=== PATIENT | female | born 1955 | race Caucasian/White ===

== ENCOUNTER 2017-06-22 23:56 | Emergency (ER) | payer MEDICARE, MEDICAID ==
[~2017-06-22] VITALS: Ht 160 cm; Wt 83.9 kg
[~2017-06-22 23:56] MED LIST: ACETAMINOPHEN-H1 TA2 PO; ALLEGRA ALLERG180 MG OR; ALPRAZOLAM0.5 M3 PO; AMITRIPTYLINE H75 MG PO; ASPIRIN 81MG TA81 MG PO; ATORVASTATIN CA20 M1 PO; BENADRYL 50MG C50 MG PO; CALCIUM-MAGNES1 EAC3 PO; CIPRO 500MG TA500 MG PO; CLOPIDOGREL75 M2 PO; COLACE GENERIC100 MG PO; CYCLOBENZAPRINE10 M1 OR; FUROSEMIDE 20MG20 MG FT; GLIPIZIDE10 MG PO; HYDROCODONE1 TABLET PO; KEFLEX 500MG.500 MG PO; LETROZOLE2.5 MG PO; LEVAQUIN500 MG PO; LISINOPRIL20 MG PO; LYRICA 100 MG100 MG PO; NITROGLYCERIN0.4 MG SL; PERCOCET1 TAB PO; PHENERGAN12.5 M3 PO; PROBIOTIC1 EAC5 PO; RANITIDINE 150150 MG PO; TYLENOL325 MG PO; VITAMIN C500 M1 PO; VITAMIN E 400400 IU PO; VITAMIN K0.1 MG PO; ZETIA10 MG PO
--- NOTE | 2017-06-23 00:07 | Emergency Room Report ---
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 HAS GAS AND NO BM X 2 DAYS. 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 N Clinical Suspician of Infection? N Mental Status: 1 - Regular (Normal Baseline) Sepsis Risk:Possible Sepsis Risk Have you (or family members/close friends) recently traveled outside the [place]? N If Yes, where/when: Have you had exposure to infectious disease within the past month? N TB? Other? Specify: Source patient, RN notes reviewed, EMS, halfway records, old records Exam Limitations no limitations Comment pt with upper abd pain with nausea which started tonight Cardiac Chest Pain Chest pain indicative of cardiac No Timing/Duration this evening Severity moderate ALLERGIES Coded Allergies: trazodone (Intermediate, I-RASH 01/26/17) Beta-Blockers (Beta-Adrenergic Bloc (01/26/17) Macrolides (01/26/17) Proton Pump Inhibitors (01/26/17) Serotonin 5HT-3 Antagonists (01/26/17) bupropion (From WELLBUTRIN) (01/26/17) cimetidine (01/26/17) codeine (01/26/17) doxycycline (06/23/17) erythromycin base (From ERYTHROCIN) (01/26/17) fluoxetine (From PROZAC) (01/26/17) iodine (01/26/17) phenobarbital (01/26/17) pimecrolimus (From ELIDEL) (01/26/17) sirolimus (01/26/17) tacrolimus (01/26/17) topiramate (From TOPAMAX) (01/26/17) tramadol (01/26/17) venlafaxine (From EFFEXOR) (01/26/17) Uncoded Allergies: CONTRAST DYE (07/06/16) KETOLIDES (07/06/16) Home Medications Reported Medications CLOPIDOGREL BISULFATE (Clopidogrel) 75 MG PO DAILY #30 Glipizide 10 MG PO DAILY #30 Letrozole 2.5 MG PO DAILY #30 NITROGLYCERIN (Nitrostat) 0.4 MG SL [id number] PRN CHEST PAIN #25 RANITIDINE HCL (Ranitidine HCl) 300 MG PO BID #60 TAB Lisinopril 20 MG PO DAILY PRN SBP > 130 #15 TAB PROMETHAZINE HCL (Phenergan 12.5MG Tab (Geq)) 12.5 MG PO Q8HP PRN NAUSEA #30 TAB Furosemide (Furosemide) 20 MG FT DAILY PRN FLUID #30 TAB Cyclobenzaprine Hcl 10 MG OR Q8HP PRN PAIN #30 TAB Atorvastatin Calcium 20 MG PO QHS #30 TAB AMITRIPTYLINE HCL (Amitriptyline HCl) 75 MG PO QHS #30 TAB Alprazolam 0.5 MG PO TID PRN ANXIETY #30 TAB Pregabalin (Lyrica 100Mg) 100 MG PO BID #30 CAPSULE Acetaminophen (Tylenol) 325 MG PO Q4HP PRN PAIN/FEVER ASPIRIN (Aspirin) 81 MG PO DAILY Calcium/Magnesium/Zinc (Kupuzjr-Mwwctpbut-Awip Tablet) 2 EACH PO DAILY FEXOFENADINE HCL (Cindy Allergy) 180 MG OR DAILY Bacillus Coagulans (Probiotic) 1 EACH PO DAILY Ascorbic Acid (Vitamin C) 1,000 MG PO DAILY Vitamin E (Vitamin E 400 UNITS) 400 IUNITS PO DAILY Phytonadione (Vitamin K) 0.1 MG PO DAILY Ezetimibe (Zetia) 10 MG PO DAILY OXYCODONE HCL/ACETAMINOPHEN (Percocet 5-325 MG Tablet) 1 TAB PO Q6HP PRN PAIN Diphenhydramine Hcl (Benadryl 50MG Cap) 50 MG PO Q4-6H PRN Pravastatin Sodium (Pravastatin 20MG) 20 MG PO DAILY Docusate Sodium 250 MG PO DAILY History Medical History General CAD? Yes Angina: Yes [place]: Yes Hypertension? Yes Hyperlipidemia? Yes CHF? No DVT? No PE? No COPD? No Asthma? Yes Anemia? No GERD? Yes Gastric ulcers? Yes GI Bleed? No Hernia? Yes Thyroid Problems? No Hypothyroidism? No CVA? Yes Seizures? No Diabetes? Yes Insulin Dependent: No Insulin Pump: No Home FSBS? Yes Renal Insuffiency? No End Stage Renal Disease? No UTI? No Stones? No BPH? No GB Disease: Yes Nephritic Syndrome? No Asplenia? No Hepatitis? No Sickle Cell Disease? No Arthritis? No Migraines? No Cataracts? Yes Glaucoma? No MRSA? No HIV? No TB? No Anxiety? Yes Depression? Yes Cancer? No More? No Immunization Hx DT/Tetanus 1-4 YRS Surgical Hx Previous Surgery?Y GALLBLADDER APPY T&A HYSTERECTOMY EYES X2 HEART STENTS X 3 MASTECTOMY OF RIGHT BREAS Social History Smoking Hx Smoker: Current Every Day Smoker Tobacco: Yes Type Cigarettes Packs/day 1 1/2 - 2 Packs Alcohol Alcohol: No Drugs none Review of Systems All Other Systems Reviewed and Negative Constitutional denies fever Eyes denies drainage ENT denies: ear discharge, epistaxis, throat pain. Respiratory see HPI, cough, denies shortness of breath, denies wheezing Cardiovascular denies chest pain, denies palpitations, denies syncope Gastrointestinal see HPI, abdominal pain, denies diarrhea, nausea, denies vomiting Genitourinary denies: dysuria, frequency, hesitancy, hematuria. Musculoskeletal denies back pain, denies joint pain, denies joint swelling, denies neck pain Skin denies rash Psychiatric/Neurological denies headache, denies seizure Physical Exam Vital Signs Vital Signs Date Time Temp Pulse Resp B/P Pulse O2 O2 Flow FiO2 Ox Delivery Rate 06/23 0058 95 20 112/67 97 06/22 2358 97.6 100 20 135/69 99 - WBC >12,000 or <4,000 or 10% bands? 2 or more SIRS Criteria Met? B/P:112/ MAP:91 Creatinine >2.0? UA output<0.5ml/kg/hr for 2 hrs? Platelet count >100,000? Lactate >2.0mmol/1? INR >1.2 or PTT > than 60 sec? Evidence of Organ Dysfunction? Provider documented clinical suspician of infection? N Sepsis Criteria Count: 2 Sepsis Risk: Possible Sepsis Risk General Appearance no apparent distress Eye Exam - bilateral eye PERRL, bilateral eye EOMI Ear, Nose, Throat normal ENT inspection Neck supple Respiratory Status No: respiratory distress. Lung Sounds bilateral: rhonchi. 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 No Results/Orders Laboratory Tests 06/23/1714: Troponin I < 0.02 06/23/1714: Sodium 136, Potassium 4.2, Chloride 99, Carbon Dioxide 33 H, BUN 16, Creatinine 1.1 H, Estimated Creat Clear 70, Estimated GFR (MDRD) 50 L, Glucose 98, Calcium 9.8, Total Bilirubin 0.3, AST 14 L, ALT 26, Alkaline Phosphatase 132 H , Total Protein 7.6, Albumin 3.9, Globulin 3.7 H, Albumin/Globulin Ratio 1.1, Amylase 17 L, Lipase 104, WBC 12.4 H, RBC 4.57, Hgb 14.8, Hct 44.4, MCV 97.0, RDW 13.2, Plt Count 205, MPV 7.9, Gran % 50.0, Gran # 6.2, Lymphocytes % 39.1, Monocytes % 7.3, Eosinophils % 2.6, Basophils % 1.0, Lymphocytes # 4.9 H, Monocytes # 0.9, Eosinophils # 0.3, Basophils # 0.1, PUBS MCHC 33.3, MCH 32.3 H Current Medication Orders Sig/Vikas Start time Last Medication Dose Route Stop Time Status Admin Sodium Chloride 10 ML PRN PRN 06/23 15 AC IV 06/24 5 Orders Procedure Date/time Status DIET-NOTHING BY MOUTH 06/[address] ABD & PELVIS W/O CONTRAST 06/23 18 Active TROPONIN I 06/[address] ABD REQUEST 06/23 6 Active IV SALINE LOCK 06/23 6 Active URINALYSIS/COMPLETE 06/23 6 Active LIPASE 06/23 6 Complete CBC WITH AUTO DIFF 06/23 6 Complete CHEM 12 PROFILE 06/23 6 Complete AMYLASE 06/23 6 Complete XRAY/CT/US XRAY/CT/US CT abdomen, pelvis CT interpretation by discussed w/radiologist Time results known: 0129 CT Results normal/NAD Departure Departure Time of Disposition 0125 Disposition DC Home or Self Care(routine) Clinical Impression Primary Impression: Gastritis Qualifiers: Gastritis type: unspecified gastritis Chronicity: unspecified Gastritis bleeding: presence of bleeding unspecified Qualified Code: K29.70 - Gastritis, unspecified, without bleeding Condition STABLE Referrals Tash WHYTE,Teto Sheridan (Family) Patient Instructions DI for Vomiting -- Adult Additional Instructions use meds and see pcp for follow up Discharge Counseling Counseled pt/family regarding diagnosis, test results, follow up needs ED Critical Care Critical Care No at 0131
--- NOTE | 2017-06-23 00:07 | Emergency Room Report ---
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 HAS GAS AND NO BM X 2 DAYS. 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 N Clinical Suspician of Infection? N Mental Status: 1 - Regular (Normal Baseline) Sepsis Risk:Possible Sepsis Risk Have you (or family members/close friends) recently traveled outside the [place]? N If Yes, where/when: Have you had exposure to infectious disease within the past month? N TB? Other? Specify: Source patient, RN notes reviewed, EMS, [facility] records, old records Exam Limitations no limitations Comment pt with upper abd pain with nausea which started tonight Cardiac Chest Pain Chest pain indicative of cardiac No Timing/Duration this evening Severity moderate ALLERGIES Coded Allergies: trazodone (Intermediate, I-RASH 01/26/17) Beta-Blockers (Beta-Adrenergic Bloc (01/26/17) Macrolides (01/26/17) Proton Pump Inhibitors (01/26/17) Serotonin 5HT-3 Antagonists (01/26/17) bupropion (From WELLBUTRIN) (01/26/17) cimetidine (01/26/17) codeine (01/26/17) doxycycline (06/23/17) erythromycin base (From ERYTHROCIN) (01/26/17) fluoxetine (From PROZAC) (01/26/17) iodine (01/26/17) phenobarbital (01/26/17) pimecrolimus (From ELIDEL) (01/26/17) sirolimus (01/26/17) tacrolimus (01/26/17) topiramate (From TOPAMAX) (01/26/17) tramadol (01/26/17) venlafaxine (From EFFEXOR) (01/26/17) Uncoded Allergies: CONTRAST DYE (07/06/16) KETOLIDES (07/06/16) Home Medications Reported Medications CLOPIDOGREL BISULFATE (Clopidogrel) 75 MG PO DAILY #30 Glipizide 10 MG PO DAILY #30 Letrozole 2.5 MG PO DAILY #30 NITROGLYCERIN (Nitrostat) 0.4 MG SL [id number] PRN CHEST PAIN #25 RANITIDINE HCL (Ranitidine HCl) 300 MG PO BID #60 TAB Lisinopril 20 MG PO DAILY PRN SBP > 130 #15 TAB PROMETHAZINE HCL (Phenergan 12.5MG Tab (Geq)) 12.5 MG PO Q8HP PRN NAUSEA #30 TAB Furosemide (Furosemide) 20 MG FT DAILY PRN FLUID #30 TAB Cyclobenzaprine Hcl 10 MG OR Q8HP PRN PAIN #30 TAB Atorvastatin Calcium 20 MG PO QHS #30 TAB AMITRIPTYLINE HCL (Amitriptyline HCl) 75 MG PO QHS #30 TAB Alprazolam 0.5 MG PO TID PRN ANXIETY #30 TAB Pregabalin (Lyrica 100Mg) 100 MG PO BID #30 CAPSULE Acetaminophen (Tylenol) 325 MG PO Q4HP PRN PAIN/FEVER ASPIRIN (Aspirin) 81 MG PO DAILY Calcium/Magnesium/Zinc (Hgduwkk-Jadhhfrwy-Cgzy Tablet) 2 EACH PO DAILY FEXOFENADINE HCL (Cindy Allergy) 180 MG OR DAILY Bacillus Coagulans (Probiotic) 1 EACH PO DAILY Ascorbic Acid (Vitamin C) 1,000 MG PO DAILY Vitamin E (Vitamin E 400 UNITS) 400 IUNITS PO DAILY Phytonadione (Vitamin K) 0.1 MG PO DAILY Ezetimibe (Zetia) 10 MG PO DAILY OXYCODONE HCL/ACETAMINOPHEN (Percocet 5-325 MG Tablet) 1 TAB PO Q6HP PRN PAIN Diphenhydramine Hcl (Benadryl 50MG Cap) 50 MG PO Q4-6H PRN Pravastatin Sodium (Pravastatin 20MG) 20 MG PO DAILY Docusate Sodium 250 MG PO DAILY History Medical History General CAD? Yes Angina: Yes [place]: Yes Hypertension? Yes Hyperlipidemia? Yes CHF? No DVT? No PE? No COPD? No Asthma? Yes Anemia? No GERD? Yes Gastric ulcers? Yes GI Bleed? No Hernia? Yes Thyroid Problems? No Hypothyroidism? No CVA? Yes Seizures? No Diabetes? Yes Insulin Dependent: No Insulin Pump: No Home FSBS? Yes Renal Insuffiency? No End Stage Renal Disease? No UTI? No Stones? No BPH? No GB Disease: Yes Nephritic Syndrome? No Asplenia? No Hepatitis? No Sickle Cell Disease? No Arthritis? No Migraines? No Cataracts? Yes Glaucoma? No MRSA? No HIV? No TB? No Anxiety? Yes Depression? Yes Cancer? No More? No Immunization Hx DT/Tetanus 1-4 YRS Surgical Hx Previous Surgery?Y GALLBLADDER APPY T&A HYSTERECTOMY EYES X2 HEART STENTS X 3 MASTECTOMY OF RIGHT BREAS Social History Smoking Hx Smoker: Current Every Day Smoker Tobacco: Yes Type Cigarettes Packs/day 1 1/2 - 2 Packs Alcohol Alcohol: No Drugs none Review of Systems All Other Systems Reviewed and Negative Constitutional denies fever Eyes denies drainage ENT denies: ear discharge, epistaxis, throat pain. Respiratory see HPI, cough, denies shortness of breath, denies wheezing Cardiovascular denies chest pain, denies palpitations, denies syncope Gastrointestinal see HPI, abdominal pain, denies diarrhea, nausea, denies vomiting Genitourinary denies: dysuria, frequency, hesitancy, hematuria. Musculoskeletal denies back pain, denies joint pain, denies joint swelling, denies neck pain Skin denies rash Psychiatric/Neurological denies headache, denies seizure Physical Exam Vital Signs Vital Signs Date Time Temp Pulse Resp B/P Pulse O2 O2 Flow FiO2 Ox Delivery Rate 06/23 0058 95 20 112/67 97 06/22 2358 97.6 100 20 135/69 99 - WBC >12,000 or <4,000 or 10% bands? 2 or more SIRS Criteria Met? B/P:112/ MAP:91 Creatinine >2.0? UA output<0.5ml/kg/hr for 2 hrs? Platelet count >100,000? Lactate >2.0mmol/1? INR >1.2 or PTT > than 60 sec? Evidence of Organ Dysfunction? Provider documented clinical suspician of infection? N Sepsis Criteria Count: 2 Sepsis Risk: Possible Sepsis Risk General Appearance no apparent distress Eye Exam - bilateral eye PERRL, bilateral eye EOMI Ear, Nose, Throat normal ENT inspection Neck supple Respiratory Status No: respiratory distress. Lung Sounds bilateral: rhonchi. 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 No Results/Orders Laboratory Tests 06/23/1714: Troponin I < 0.02 06/23/1714: Sodium 136, Potassium 4.2, Chloride 99, Carbon Dioxide 33 H, BUN 16, Creatinine 1.1 H, Estimated Creat Clear 70, Estimated GFR (MDRD) 50 L, Glucose 98, Calcium 9.8, Total Bilirubin 0.3, AST 14 L, ALT 26, Alkaline Phosphatase 132 H , Total Protein 7.6, Albumin 3.9, Globulin 3.7 H, Albumin/Globulin Ratio 1.1, Amylase 17 L, Lipase 104, WBC 12.4 H, RBC 4.57, Hgb 14.8, Hct 44.4, MCV 97.0, RDW 13.2, Plt Count 205, MPV 7.9, Gran % 50.0, Gran # 6.2, Lymphocytes % 39.1, Monocytes % 7.3, Eosinophils % 2.6, Basophils % 1.0, Lymphocytes # 4.9 H, Monocytes # 0.9, Eosinophils # 0.3, Basophils # 0.1, PUBS MCHC 33.3, MCH 32.3 H Current Medication Orders Sig/Vikas Start time Last Medication Dose Route Stop Time Status Admin Sodium Chloride 10 ML PRN PRN 06/23 15 AC IV 06/24 5 Orders Procedure Date/time Status DIET-NOTHING BY MOUTH 06/[address] ABD & PELVIS W/O CONTRAST 06/23 18 Active TROPONIN I 06/[address] ABD REQUEST 06/23 6 Active IV SALINE LOCK 06/23 6 Active URINALYSIS/COMPLETE 06/23 6 Active LIPASE 06/23 6 Complete CBC WITH AUTO DIFF 06/23 6 Complete CHEM 12 PROFILE 06/23 6 Complete AMYLASE 06/23 6 Complete XRAY/CT/US XRAY/CT/US CT abdomen, pelvis CT interpretation by discussed w/radiologist Time results known: 0129 CT Results normal/NAD Departure Departure Time of Disposition 0125 Disposition DC Home or Self Care(routine) Clinical Impression Primary Impression: Gastritis Qualifiers: Gastritis type: unspecified gastritis Chronicity: unspecified Gastritis bleeding: presence of bleeding unspecified Qualified Code: K29.70 - Gastritis, unspecified, without bleeding Condition STABLE Referrals Tash WHYTE,Teto Sheridan (Family) Patient Instructions DI for Vomiting -- Adult Additional Instructions use meds and see pcp for follow up Discharge Counseling Counseled pt/family regarding diagnosis, test results, follow up needs ED Critical Care Critical Care No at 0131
[2017-06-23] MEDS ORDERED: PRAVASTATIN 20M20 MG PO (00:19)
[2017-06-23 00:21] LABS: HEMOGLOBIN 14.8 g/dL (12.2-16.2); LYMPH # 4.9 K/mm3 (0.7-4.5); LYMPH % 39.1 % (10-50.0)
[2017-06-23] MEDS ORDERED: DOCUSATE SODIU100 MG PO (00:22)
[2017-06-23 01:52] VITALS: BP 107/59
--- NOTE | 2017-06-23 08:47 | RADIOLOGY REPORT PS360 ---
CT ABD PELVIS W/O CONTRAST COMPARISON: CT scan abdomen and pelvis 05/07/2017 HISTORY: Generalized abdominal pain and right upper quadrant pain TECHNIQUE: Multiaxial scans obtained from hemidiaphragms the pelvic floor and were performed without IV or oral contrast. Sagittal and coronal reformats were evaluated as well. FINDINGS: The lower lung [place] are clear. The liver is grossly normal overall size with a somewhat prominent right lobe suggesting a Joseph's lobe variant. There appears be mild generalized fatty infiltration. Stomach is distended with ingested food particles otherwise appears normal. The spleen and pancreas are normal, there has been a previous cholecystectomy. Again noted is a low-density lesion involving left adrenal gland stable and likely a small cyst or adenoma. The right urine glands are normal. The kidneys are normal size and there are no calculi and is no obstructive uropathy. Small bowel appears normal. There does appear to be a small amount of likely inspissated barium contrast within the cecum mixed with stool. There is been previous appendectomy. There is moderate amount stool throughout the colon especially sigmoid colon.. There is been previous hysterectomy. Urinary bladder appears grossly normal. There is no free fluid in the pelvis. IMPRESSION: No definite acute abdominal or pelvic pathology identified. Question mild fatty infiltration of the liver and possibly a mild degree of constipation.
--- OUTSIDE RECORDS SUMMARY | 2017-06-30 18:04 | External Medical Summary Rpt | CCD ---
Author Author , YOLANDE DYER Address Unknown Phone [email or web address] Purpose Continuity of Care Document - 05-07-2017 through 2016 Results Labs Lab Lab Date Result Refere Interp Status Commen Order Detail nces retati t Range on Differential panel, method unspecified - (05-07-2017 21:05) LYMPH 55 % 10% - High complet 017 50% ed 21:05 Platele NORMAL complet ts 017 ed [Presen 21:05 ce] in Blood by Light microsc opy Erythro NORMAL complet cyte 017 ed morphol 21:05 ogy finding [Identi fier] in Blood
--- OUTSIDE RECORDS SUMMARY | 2017-06-30 18:04 | External Medical Summary Rpt | CCD ---
Author Author , YOLANDE DYER Address Unknown Phone [email or web address] Purpose Continuity of Care Document - 05-07-2017 [...]
--- OUTSIDE RECORDS SUMMARY | 2017-06-30 18:05 | External Medical Summary Rpt ---
Author Author MANISHA oJyce, [employer] Organization [employer] Address Unknown Phone Unavailable Results Amylase [Enzymatic activity/volume] in Serum or Plasma Observa Value Referen Units Interpr Notes Date tion ce etation Range Amylase 25 - 115 U/L Low No Jun 5 [Enzymati informati 2017 c on in 12:15 AM activity/ source volume] data in Serum or Plasma Comprehensive metabolic 2000 panel in Serum or Plasma Observa Value Referen Units Interpr Notes Date tion ce etation Range Albumin/G 1.1 - 1.8 No Normal No Oct 5 lobulin informati informati 2017 [Mass on in on in 12:15 AM ratio] in source source Serum or data data Plasma Albumin 3.4 - 5.0 gm/dL Normal No Jun 5 [Mass/vol informati 2017 ume] in on in 12:15 AM Serum or source Plasma data Alkaline 46 - 116 U/L High No Jun 5 phosphata informati 2017 se on in 12:15 AM [Enzymati source c data activity/ volume] in Serum or Plasma Bilirubin 0.2 - 1.0 mg/dL Normal No Oct 5 .total informati 2017 [Mass/vol on in 12:15 AM ume] in source Serum or data Plasma Urea 7 - 18 mg/dL Normal No Oct 5 nitrogen informati 2017 [Mass/vol on in 12:15 AM ume] in source Serum or data Plasma Calcium 8.5 - mg/dL Normal No Jun 5 [Mass/vol 10.1 informati 2017 ume] in on in 12:15 AM Serum or source Plasma data Chloride 98 - 107 mmoL/L Normal No Jun 5 [Moles/vo informati 2017 lume] in on in 12:15 AM Serum or source Plasma data Carbon 21.0 - mmoL/L High No Oct 5 dioxide, 32.0 informati 2017 total on in 12:15 AM [Moles/vo source lume] in data Serum or Plasma Creatinin 0.55 - mg/dL High No Oct 5 e 1.02 informati 2017 [Mass/vol on in 12:15 AM ume] in source Serum or data Plasma Creatinin 50 - 200 ML/MIN Normal No Jun 23 e renal 2016 clearance on in 12:15 AM source predicted data by Cockcroft -Gault formula Estimated 59- ML/MIN Low REFERENCE Jun 23 RANGE: 2017 glomerula >60 12:15 AM r ML/MIN/1. filtratio 73 SQUARE n rate METERSIf (GF this patient is -A merican, then multiply theresult by 1.210. Globulin 1.3 - 3.2 gm/dL High No Jun 23 [Mass/vol informati 2016 ume] in on in 12:15 AM Serum source data Glucose 74 - 106 mg/dL Normal No Jun 23 [Mass/vol informati 2016 ume] in on in 12:15 AM Serum or source Plasma data Potassium 3.5 - 5.1 mmoL/L Normal No Jun [id number] [Moles/vo on in 12:15 AM lume] in source Serum or data Plasma Sodium 136 - 145 mmoL/L Normal No Jun 23 [Moles/vo informati 2016 lume] in on in 12:15 AM Serum or source Plasma data Aspartate 15 - 37 U/L Low No Jun [id number] aminotran on in 12:15 AM sferase source [Enzymati data c activity/ volume] in Serum or Plasma Alanine 12 - 78 U/L Normal No Jun 23 aminotran 2016 sferase on in 12:15 AM [Enzymati source c data activity/ volume] in Serum or Plasma Protein 6.4 - 8.2 gm/dL Normal No Jun 23 [Mass/vol informati 2016 ume] in on in 12:15 AM Serum or source Plasma data Lipase [Enzymatic activity/volume] in Serum or Plasma Observa Value Referen Units Interpr Notes Date tion ce etation Range Lipase 73 - 393 U/L Normal No Jun 23 [Enzymati informati 2017 c on in 12:15 AM activity/ source volume] data in Serum or Plasma CBC W Auto Differential panel in Blood Observa Value Referen Units Interpr Notes Date tion ce etation Range Basophils 0 - 0.2 K/MM3 Normal No Jun 23 inform2016 [#/volume on in 12:15 AM ] in source Blood by data Automated count Basophils 0.1 - 2.0 % Normal No Jun [id number] leukocyte on in 12:15 AM s in source Blood by data Automated count Eosinophi 0.0 - 0.4 K/mm3 Normal No Jun 23 ls inform2016 [#/volume on in 12:15 AM ] in source Blood by data Automated count Eosinophi 0.1 - % Normal No Jun 23 ls/100 12.0 inform2016 leukocyte on in 12:15 AM s in source Blood by data Automated count Granulocy 1.8 - 7.8 K/mm3 Normal No Jun 23 milton inform2016 [#/volume on in 12:15 AM ] in source Blood by data Automated count Granulocy 37.0 - % Normal No Jun 23 milton/100 80.0 inform2016 leukocyte on in 12:15 AM s in source Blood by data Automated count Hematocri 37.0 - % Normal No Jun 23 t [Volume 47.0 2016 on in 12:15 AM Fraction] source of Blood data Hemoglobi 12.2 - g/dL Normal No Jun 23 n 16.2 inform2016 [Mass/vol on in 12:15 AM ume] in source Blood data Lymphocyt 0.7 - 4.5 K/mm3 High No Jun 23 es 2016 [#/volume on in 12:15 AM ] in source Unspecifi data ed specimen by Automated count Lymphocyt 10 - 50.0 % Normal No Jun 23 es 2016 [#/volume on in 12:15 AM ] in source Unspecifi data ed specimen by Automated count Erythrocy 27 - 31.2 pg High No Jun 23 te mean 2016 corpuscul on in 12:15 AM ar source hemoglobi data n [Entitic mass] Erythrocy 31.8 - g/dl Normal No Jun 23 te mean 35.4 2016 corpuscul on in 12:15 AM ar source hemoglobi data n concentra tion [Mass/vol ume] by Automated count Erythrocy 82.2 - fl Normal No Jun 23 te mean 97.8 2016 corpuscul on in 12:15 AM ar volume source [Entitic data volume] by Automated count Monocytes 0.1 - 1.0 K/mm3 Normal No Jun [id number] [#/volume on in 12:15 AM ] in source Blood by data Automated count Monocytes 1.7 - 9.3 % Normal No Jun 232016 leukocyte on in 12:15 AM s in source Blood by data Automated count Platelet 7.4 - fl Normal No Jun 23 mean 10.4 2016 volume on in 12:15 AM [Entitic source volume] data in Blood by Automated count Platelets 142 - 424 K/mm3 Normal No Jun 232016 [#/volume on in 12:15 AM ] in source Blood data Erythrocy 4.2 - 5.4 M/mm3 Normal No Jun 23 inform2016 [#/volume on in 12:15 AM ] in source Amniotic data fluid Erythrocy 11.5 - % Normal No Jun 23 te 17.5 informati 2016 distribut on in 12:15 AM ion width source [Entitic data volume] by Automated count Leukocyte 4.8 - K/MM3 High No Jun 23 s 10.8 inform2016 [#/volume on in 12:15 AM ] in source Blood data CBC W Auto Differential panel in Blood Observa Value Referen Units Interpr Notes Date tion ce etation Range Basophils 0 - 0.2 K/MM3 Normal No May 072016 9:05 [#/volume on in PM ] in source Blood by data Automated count Basophils 0.1 - 2.0 % Normal No May 07 informati 2016 9:05 leukocyte on in PM s in source Blood by data Automated count Eosinophi 0.0 - 0.4 K/mm3 Normal No May 07 ls ati 2016 9:05 [#/volume on in PM ] in source Blood by data Automated count Eosinophi 0.1 - % Normal No May 07 ls/100 12.0 informati 2016 9:05 leukocyte on in PM s in source Blood by data Automated count Granulocy 1.8 - 7.8 K/mm3 Normal No May 07 milton informati 2016 9:05 [#/volume on in PM ] in source Blood by data Automated count Granulocy 37.0 - % Low No May 07 milton/100 80.0 informati 2016 9:05 leukocyte on in PM s in source Blood by data Automated count Hematocri 37.0 - % Normal No May 07 t [Volume 47.0 informati 2016 9:05 on in PM Fraction] source of Blood data Hemoglobi 12.2 - g/dL Normal No May 07 n 16.2 informati 2016 9:05 [Mass/vol on in PM ume] in source Blood data Lymphocyt 0.7 - 4.5 K/mm3 High No May 07 es informati 2017 9:05 [#/volume on in PM ] in source Unspecifi data ed specimen by Automated count Lymphocyt 10 - 50.0 % High No May 07 es informati 2017 9:05 [#/volume on in PM ] in source Unspecifi data ed specimen by Automated count Erythrocy 27 - 31.2 pg High No May 07 te mean informati 2016 9:05 corpuscul on in PM ar source hemoglobi data n [Entitic mass] Erythrocy 31.8 - g/dl Normal No May 07 te mean 35.4 informati 2017 9:05 corpuscul on in PM ar source hemoglobi data n concentra tion [Mass/vol ume] by Automated count Erythrocy 82.2 - fl Normal No May 07 te mean 97.8 informati 2016 9:05 corpuscul on in PM ar volume source [Entitic data volume] by Automated count Monocytes 0.1 - 1.0 K/mm3 Normal No May 07 informati 2017 9:05 [#/volume on in PM ] in source Blood by data Automated count Monocytes 1.7 - 9.3 % Normal No May 07 /100 informati 2017 9:05 leukocyte on in PM s in source Blood by data Automated count Platelet 7.4 - fl Normal No May 07 mean 10.4 informati 2017 9:05 volume on in PM [Entitic source volume] data in Blood by Automated count Platelets 142 - 424 K/mm3 Normal No May 07 informati 2016 9:05 [#/volume on in PM ] in source Blood data Erythrocy 4.2 - 5.4 M/mm3 Normal No May 07 milton informati 2017 9:05 [#/volume on in PM ] in source Amniotic data fluid Erythrocy 11.5 - % Normal No May 07 te 17.5 informati 2016 9:05 distribut on in PM ion width source [Entitic data volume] by Automated count Leukocyte 4.8 - K/MM3 Normal No May 07 s 10.8 informati 2016 9:05 [#/volume on in PM ] in source Blood data Differential panel, method unspecified - Observa Value Referen Units Interpr Notes Date tion ce etation Range Neutrophi 0 - 8 % Normal No May 07 ls.band informati 2016 9:05 form/100 on in PM leukocyte source s in data Blood by Automated count Eosinophi 0 - 3 % Normal No May 07 ls/100 informati 2017 9:05 leukocyte on in PM s in source Blood by data Manual count LYMPH 55 10 - 50 % High No May 07 inform2016 tion in 9:05 PM source data Monocytes 2 - 9 % Low No May 07 /100 informati 2017 9:05 leukocyte on in PM s in source Blood by data Automated count Platele NORMAL No No No No May 07 ts informa informa informa informa 2017 [Presen tion in tion in tion in tion in 9:05 PM ce] in source source source source Blood data data data data by Light microsc opy Neutrophi 42 - 76 % Low No May 07 ls informati 2016 9:05 [#/volume on in PM ] in source Blood by data Automated count Erythro NORMAL No No No No May 07 cyte informa informa informa informa 2017 morphol tion in tion in tion in tion in 9:05 PM ogy source source source source finding data data data data [Identi fier] in Blood Cells No #CELLS No No May 07 Counted informati informati informati 2017 9:05 Total [#] on in on in on in PM in Blood source source source data data data Amylase [Enzymatic activity/volume] in Serum or Plasma Observa Value Referen Units Interpr Notes Date ti ce etation Range Amylase 25 - 115 U/L Low No May 07 [Enzymati informati 2017 9:05 c on in PM activity/ source volume] data in Serum or Plasma Comprehensive metabolic 2000 panel in Serum or Plasma Observa Value Referen Units Interpr Notes Date ti ce etation Range Albumin/G 1.1 - 1.8 No Normal No May 07 lobulin informati informati 2016 9:05 [Mass on in on in PM ratio] in source source Serum or data data Plasma Albumin 3.4 - 5.0 gm/dL Normal No May 07 [Mass/vol informati 2017 9:05 ume] in on in PM Serum or source Plasma data Alkaline 46 - 116 U/L High No May 07 phosphata informati 2017 9:05 se on in PM [Enzymati source c data activity/ volume] in Serum or Plasma Bilirubin 0.2 - 1.0 mg/dL Normal No May 07 .total informati 2017 9:05 [Mass/vol on in PM ume] in source Serum or data Plasma Urea 7 - 18 mg/dL Normal No May 07 nitrogen informati 2016 9:05 [Mass/vol on in PM ume] in source Serum or data Plasma Calcium 8.5 - mg/dL High No May 07 [Mass/vol 10.1 informati 2017 9:05 ume] in on in PM Serum or source Plasma data Chloride 98 - 107 mmoL/L Normal No May 07 [Moles/vo informati 2016 9:05 lume] in on in PM Serum or source Plasma data Carbon 21.0 - mmoL/L Normal No May 07 dioxide, 32.0 informati 2017 9:05 total on in PM [Moles/vo source lume] in data Serum or Plasma Creatinin 0.55 - mg/dL High No May 07 e 1.02 informati 2016 9:05 [Mass/vol on in PM ume] in source Serum or data Plasma Creatinin 50 - 200 ML/MIN Normal No May 07 e renal informati 2016 9:05 clearance on in PM source predicted data by Cockcroft -Gault formula Estimated 59- ML/MIN Low REFERENCE May 07 RANGE: 2017 9:05 glomerula >60 PM r ML/MIN/1. filtratio 73 SQUARE n rate METERSIf (GF this patient is -A merican, then multiply theresult by 1.210. Globulin 1.3 - 3.2 gm/dL High No May 07 [Mass/vol informati 2016 9:05 ume] in on in PM Serum source data Glucose 74 - 106 mg/dL High May 07 [Mass/vol informati 2016 9:05 ume] in on in PM Serum or source Plasma data Potassium 3.5 - 5.1 mmoL/L Normal No May 07 informati 2016 9:05 [Moles/vo on in PM lume] in source Serum or data Plasma Sodium 136 - 145 mmoL/L Normal No May 07 [Moles/vo informati 2016 9:05 lume] in on in PM Serum or source Plasma data Aspartate 15 - 37 U/L Normal No May 07 informati 2016 9:05 aminotran on in PM sferase source [Enzymati data c activity/ volume] in Serum or Plasma Alanine 12 - 78 U/L Normal No May 07 aminotran informati 2016 9:05 sferase on in PM [Enzymati source c data activity/ volume] in Serum or Plasma Protein 6.4 - 8.2 gm/dL Normal No May 07 [Mass/vol informati 2016 9:05 ume] in on in PM Serum or source Plasma data Lipase [Enzymatic activity/volume] in Serum or Plasma Observa Value Referen Units Interpr Notes Date tion ce etation Range Lipase 73 - 393 U/L Normal No May 07 [Enzymati informati 2016 9:05 c on in PM activity/ source volume] data in Serum or Plasma
--- OUTSIDE RECORDS SUMMARY | 2017-06-30 18:05 | External Medical Summary Rpt | CCD ---
Author Author , MANISHA Organization MANISHA Address Unknown Phone [email or web address] Immunization Name Date Rout CVX Reac Dose Comm Prov Is Faci e tion ent ider Refu lity Give sed n PCV1 10-2 133 999 Hist LEXC No LEXC 3 2-[facility] HE HE 15 al Info rmat ion - Sour ce Unsp ecif ied Infl 10-2 141 999 Hist LEXC No LEXC uenz 2-[facility] HE HE a, 15 al Seas Info onal rmat ion - Sour ce Unsp ecif ied
--- OUTSIDE RECORDS SUMMARY | 2017-06-30 18:05 | External Medical Summary Rpt ---
Author Author MANISHA Joyce, MANISHA [employer] Organization [employer] Address Unknown [...]
--- OUTSIDE RECORDS SUMMARY | 2017-06-30 18:05 | External Medical Summary Rpt | CCD ---
Author Author , MANISHA Organization MANISHA Address Unknown Phone [email or web address] Immunization Name Date Rout CVX Reac Dose Comm Prov Is Faci e tion ent ider Refu lity Give sed n PCV1 10-2 133 999 Hist LEXC No LEXC 3 2-20 [facility] HE HE 15 al Info rmat ion - Sour ce Unsp ecif ied Infl 10-2 141 999 Hist LEXC No LEXC uenz 2-20 [facility] HE HE a, 15 al Seas Info onal rmat ion - Sour ce Unsp ecif ied
== END 2017-06-23 01:53 | disposition home or self-care (01) ==
LOC: ER 23:56
PROVIDERS: Emergency Medicine
DX: K29.70 Gastritis, unspecified, without bleeding (principal); Z88.8 Allergy status to other drugs, medicaments and biological substances; Z79.82 Long term (current) use of aspirin; I25.10 Atherosclerotic heart disease of native coronary artery without angina pectoris; I10 Essential (primary) hypertension; J45.909 Unspecified asthma, uncomplicated; K21.9 Gastro-esophageal reflux disease without esophagitis; E11.9 Type 2 diabetes mellitus without complications; Z72.0 Tobacco use

== ENCOUNTER 2017-07-01 16:57 | Emergency (ER) | payer MEDICARE, MEDICAID ==
[~2017-07-01] VITALS: Ht 160 cm; Wt 81.6 kg
[~2017-07-01 16:57] MED LIST changes: +DOCUSATE SODIU100 MG PO; +PRAVASTATIN 20M20 MG PO
--- NOTE | 2017-07-01 17:08 | Emergency Room Report ---
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 PT REPORTS L RIB PAIN, L ELBOW AND TIMI KNEE PAIN R/T FALL. DENIES LOC. 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 N Clinical Suspician of Infection? N Mental Status: 1 - Regular (Normal Baseline) Sepsis Risk:Possible Sepsis Risk Have you (or family members/close friends) recently traveled outside the [place]? N If Yes, where/when: Have you had exposure to infectious disease within the past month? N TB? Other? Specify: Comment The patient is brought in by ambulance for evaluation after a fall. She says she was trying to pull her chair up the stairs and fell back. She has multiple complaints of pain. She initially complained of pain in both knees and her LEFT elbow and LEFT ribs. She also has chronic neck pain. She also tells me after she has had x-rays and CAT scans that her LEFT hand and wrist hurt. She is requesting pain medication. She tells me that she has trouble swallowing and wants a shot. [facility]ad[facility] halfway reports that she had one dose of Percocet today. States she told staff she did not want to come, but they sent her anyway. ALLERGIES Coded Allergies: trazodone (Intermediate, I-RASH 01/26/17) Beta-Blockers (Beta-Adrenergic Bloc (01/26/17) Macrolides (01/26/17) Proton Pump Inhibitors (01/26/17) Serotonin 5HT-3 Antagonists (01/26/17) bupropion (From WELLBUTRIN) (01/26/17) cimetidine (01/26/17) codeine (01/26/17) doxycycline (06/23/17) erythromycin base (From ERYTHROCIN) (01/26/17) fluoxetine (From PROZAC) (01/26/17) iodine (01/26/17) phenobarbital (01/26/17) pimecrolimus (From ELIDEL) (01/26/17) sirolimus (01/26/17) tacrolimus (01/26/17) topiramate (From TOPAMAX) (01/26/17) tramadol (01/26/17) venlafaxine (From EFFEXOR) (01/26/17) Uncoded Allergies: CONTRAST DYE (07/06/16) KETOLIDES (07/06/16) Home Medications Reported Medications CLOPIDOGREL BISULFATE (Clopidogrel) 75 MG PO DAILY #30 Glipizide 10 MG PO DAILY #30 Letrozole 2.5 MG PO DAILY #30 NITROGLYCERIN (Nitrostat) 0.4 MG SL [id number] PRN CHEST PAIN #25 RANITIDINE HCL (Ranitidine HCl) 300 MG PO BID #60 TAB Lisinopril 20 MG PO DAILY PRN SBP > 130 #15 TAB PROMETHAZINE HCL (Phenergan 12.5MG Tab (Geq)) 12.5 MG PO Q8HP PRN NAUSEA #30 TAB Furosemide (Furosemide) 20 MG FT DAILY PRN FLUID #30 TAB Cyclobenzaprine Hcl 10 MG OR Q8HP PRN PAIN #30 TAB Atorvastatin Calcium 20 MG PO QHS #30 TAB AMITRIPTYLINE HCL (Amitriptyline HCl) 75 MG PO QHS #30 TAB Alprazolam 0.5 MG PO TID PRN ANXIETY #30 TAB Pregabalin (Lyrica 100Mg) 100 MG PO BID #30 CAPSULE Acetaminophen (Tylenol) 325 MG PO Q4HP PRN PAIN/FEVER ASPIRIN (Aspirin) 81 MG PO DAILY Calcium/Magnesium/Zinc (Vmhtgrj-Ddasahglt-Ycmb Tablet) 2 EACH PO DAILY FEXOFENADINE HCL (Cindy Allergy) 180 MG OR DAILY Bacillus Coagulans (Probiotic) 1 EACH PO DAILY Ascorbic Acid (Vitamin C) 1,000 MG PO DAILY Vitamin E (Vitamin E 400 UNITS) 400 IUNITS PO DAILY Phytonadione (Vitamin K) 0.1 MG PO DAILY Ezetimibe (Zetia) 10 MG PO DAILY OXYCODONE HCL/ACETAMINOPHEN (Percocet 5-325 MG Tablet) 1 TAB PO Q6HP PRN PAIN Diphenhydramine Hcl (Benadryl 50MG Cap) 50 MG PO Q4-6H PRN Pravastatin Sodium (Pravastatin 20MG) 20 MG PO DAILY Docusate Sodium 250 MG PO DAILY History Medical History General CAD? Yes Angina: Yes [place]: Yes Hypertension? Yes Hyperlipidemia? Yes CHF? No DVT? No PE? No COPD? No Asthma? Yes Anemia? No GERD? Yes Gastric ulcers? Yes GI Bleed? No Hernia? Yes Thyroid Problems? No Hypothyroidism? No CVA? Yes Seizures? No Diabetes? Yes Insulin Dependent: No Insulin Pump: No Home FSBS? Yes Renal Insuffiency? No End Stage Renal Disease? No UTI? No Stones? No BPH? No GB Disease: Yes Nephritic Syndrome? No Asplenia? No Hepatitis? No Sickle Cell Disease? No Arthritis? No Migraines? No Cataracts? Yes Glaucoma? No MRSA? No HIV? No TB? No Anxiety? Yes Depression? Yes Cancer? No More? No Immunization Hx DT/Tetanus 1-4 YRS Surgical Hx Previous Surgery?Y GALLBLADDER APPY T&A HYSTERECTOMY EYES X2 HEART STENTS X 3 MASTECTOMY OF RIGHT BREAS Social History Smoking Hx Smoker: Current Every Day Smoker Tobacco: Yes Type Cigarettes Packs/day 1 1/2 - 2 Packs Alcohol Alcohol: No Review of Systems All Other Systems Reviewed and Negative Constitutional denies fever Cardiovascular denies chest pain, denies syncope Gastrointestinal denies abdominal pain, denies vomiting Musculoskeletal joint pain, neck pain Physical Exam Vital Signs Vital Signs Date Time Temp Pulse Resp B/P Pulse O2 O2 Flow FiO2 Ox Delivery Rate 07/01 1911 97.6 99 20 134/74 98 07/01 1839 20 07/01 1657 97.6 99 20 134/74 98 General Appearance no apparent distress, cervical collar Eye Exam - bilateral eye normal exam, bilateral eye PERRL, bilateral eye EOMI Ear, Nose, Throat hearing grossly normal, normal ENT inspection Neck normal inspection, non-tender, supple, full range of motion Respiratory Status Yes: trachea midline, chest symmetrical, non tender chest. No: respiratory distress. Lung Sounds bilateral: normal breath sounds, lungs clear. 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 No gross deformity, ecchymosis, or edema. Medical Decision Making LABS/Meds/Orders Pt receiving controlled substance in ED? Yes Peterson was queried for this patient? No Reason not queried - resident of [facility] Results/Orders Current Medication Orders Sig/Vikas Start time Last Medication Dose Route Stop Time Status Admin Diphenhydramine HCl 0 .STK-MED ONE 07/01 1838 DC PO Oxycodone/ 0 .STK-MED ONE 07/01 1838 DCr Acetaminophen PO Diphenhydramine HCl 50 MG ONCE ONE 07/01 1800 DC 07/01 PO 07/01 1801 183 Oxycodone/ 1 EACH ONCE ONE 07/01 1800 DCr 07/01 Acetaminophen PO 07/01 180 183 Orders Procedure Date/time Status DIET-NOTHING BY MOUTH 07/02 B Active WRIST-3 VIEWS-LT 07/01 1754 Active HAND-LT-3 VIEWS 07/[address] HEAD W/O CONTRAST 07/[address] CERVICAL SPINE W/O CONT. 07/[address] HEAD REQ 07/[address] SCAN REQUEST 07/01 1704 Active [facility]-DEVYWOZROL-KF-3 VIEWS 07/01 1659 Active PELVIS AP ONLY 07/01 1659 Active KNEE-3 VIEWS-RT 07/01 1659 Active KNEE-3 VIEWS-LT 07/01 1659 Active ELBOW-LT-3 VIEWS 07/01 1659 Active XRAY/CT/US XRAY/CT/US XRAY elbow, knee, pelvis, rib Comment Rib x-ray series interpreted by Pete Renusch, M.D. Negative for radiographic rib fracture, pneumothorax, hemothorax, or wide mediastinum. RIGHT knee X-ray interpreted by Pete Lizarraga MD. Negative for fracture, dislocation, or foreign body. Degenerative changes present. LEFT knee X-ray interpreted by Pete Lizarraga MD. Negative for fracture, dislocation, or foreign body. Degenerative changes present. Pelvis X-ray interpreted by Pete Lizarraga MD. Negative for fracture, dislocation, or foreign body. Elbow X-ray interpreted by Pete Lizarraga MD. Negative for fracture, dislocation, or foreign body. CT head, C-spine Comment CT scan interpreted by [facility] radiologist. Faxed report received and reviewed: Head: No acute findings Cervical spine: No acute fracture, dislocation, or subluxation. Departure Departure Disposition DC Home or Self Care(routine) Clinical Impression Primary Impression: Fall down stairs Qualifiers: Encounter type: initial encounter Qualified Code: W10.8XXA - Fall ( on) (from) other stairs and steps, initial encounter Secondary Impressions: Contusion of left hand Qualifiers: Encounter type: initial encounter Qualified Code: S60.222A - Contusion of left hand, initial encounter Contusion of left knee Qualifiers: Encounter type: initial encounter Qualified Code: S80.02XA - Contusion of left knee, initial encounter Contusion of left wrist Qualifiers: Encounter type: initial encounter Qualified Code: S60.212A - Contusion of left wrist, initial encounter Contusion of rib on left side Qualifiers: Encounter type: initial encounter Qualified Code: S20.212A - Contusion of left front wall of thorax, initial encounter Contusion of right knee Qualifiers: Encounter type: initial encounter Qualified Code: S80.01XA - Contusion of right knee, initial encounter Left elbow contusion Qualifiers: Encounter type: initial encounter Qualified Code: S50.02XA - Contusion of left elbow, initial encounter Condition STABLE Referrals Tash WHYTE,Teto Sheridan (Family) Patient Instructions DI for Contusion, How to Prevent Falls Additional Instructions Continue your current medications and follow-up with your primary care doctor as needed ED Critical Care Critical Care No at 2021
--- NOTE | 2017-07-01 17:08 | Emergency Room Report ---
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 PT REPORTS L RIB PAIN, L ELBOW AND TIMI KNEE PAIN R/T FALL. DENIES LOC. 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 N Clinical Suspician of Infection? N Mental Status: 1 - Regular (Normal Baseline) Sepsis Risk:Possible Sepsis Risk Have you (or family members/close friends) recently traveled outside the [place]? N If Yes, where/when: Have you had exposure to infectious disease within the past month? N TB? Other? Specify: Comment The patient is brought in by ambulance for evaluation after a fall. She says she was trying to pull her chair up the stairs and fell back. She has multiple complaints of pain. She initially complained of pain in both knees and her LEFT elbow and LEFT ribs. She also has chronic neck pain. She also tells me after she has had x-rays and CAT scans that her LEFT hand and wrist hurt. She is requesting pain medication. She tells me that she has trouble swallowing and wants a shot. She takes Percocet with Benadryl at the longterm. custodial reports that she had one dose of Percocet today. States she told staff she did not want to come, but they sent her anyway. ALLERGIES Coded Allergies: trazodone (Intermediate, I-RASH 01/26/17) Beta-Blockers (Beta-Adrenergic Bloc (01/26/17) Macrolides (01/26/17) Proton Pump Inhibitors (01/26/17) Serotonin 5HT-3 Antagonists (01/26/17) bupropion (From WELLBUTRIN) (01/26/17) cimetidine (01/26/17) codeine (01/26/17) doxycycline (06/23/17) erythromycin base (From ERYTHROCIN) (01/26/17) fluoxetine (From PROZAC) (01/26/17) iodine (01/26/17) phenobarbital (01/26/17) pimecrolimus (From ELIDEL) (01/26/17) sirolimus (01/26/17) tacrolimus (01/26/17) topiramate (From TOPAMAX) (01/26/17) tramadol (01/26/17) venlafaxine (From EFFEXOR) (01/26/17) Uncoded Allergies: CONTRAST DYE (07/06/16) KETOLIDES (07/06/16) Home Medications Reported Medications CLOPIDOGREL BISULFATE (Clopidogrel) 75 MG PO DAILY #30 Glipizide 10 MG PO DAILY #30 Letrozole 2.5 MG PO DAILY #30 NITROGLYCERIN (Nitrostat) 0.4 MG SL [id number] PRN CHEST PAIN #25 RANITIDINE HCL (Ranitidine HCl) 300 MG PO BID #60 TAB Lisinopril 20 MG PO DAILY PRN SBP > 130 #15 TAB PROMETHAZINE HCL (Phenergan 12.5MG Tab (Geq)) 12.5 MG PO Q8HP PRN NAUSEA #30 TAB Furosemide (Furosemide) 20 MG FT DAILY PRN FLUID #30 TAB Cyclobenzaprine Hcl 10 MG OR Q8HP PRN PAIN #30 TAB Atorvastatin Calcium 20 MG PO QHS #30 TAB AMITRIPTYLINE HCL (Amitriptyline HCl) 75 MG PO QHS #30 TAB Alprazolam 0.5 MG PO TID PRN ANXIETY #30 TAB Pregabalin (Lyrica 100Mg) 100 MG PO BID #30 CAPSULE Acetaminophen (Tylenol) 325 MG PO Q4HP PRN PAIN/FEVER ASPIRIN (Aspirin) 81 MG PO DAILY Calcium/Magnesium/Zinc (Iskjzsk-Hxxyzawcv-Kwbj Tablet) 2 EACH PO DAILY FEXOFENADINE HCL (Cindy Allergy) 180 MG OR DAILY Bacillus Coagulans (Probiotic) 1 EACH PO DAILY Ascorbic Acid (Vitamin C) 1,000 MG PO DAILY Vitamin E (Vitamin E 400 UNITS) 400 IUNITS PO DAILY Phytonadione (Vitamin K) 0.1 MG PO DAILY Ezetimibe (Zetia) 10 MG PO DAILY OXYCODONE HCL/ACETAMINOPHEN (Percocet 5-325 MG Tablet) 1 TAB PO Q6HP PRN PAIN Diphenhydramine Hcl (Benadryl 50MG Cap) 50 MG PO Q4-6H PRN Pravastatin Sodium (Pravastatin 20MG) 20 MG PO DAILY Docusate Sodium 250 MG PO DAILY History Medical History General CAD? Yes Angina: Yes [place]: Yes Hypertension? Yes Hyperlipidemia? Yes CHF? No DVT? No PE? No COPD? No Asthma? Yes Anemia? No GERD? Yes Gastric ulcers? Yes GI Bleed? No Hernia? Yes Thyroid Problems? No Hypothyroidism? No CVA? Yes Seizures? No Diabetes? Yes Insulin Dependent: No Insulin Pump: No Home FSBS? Yes Renal Insuffiency? No End Stage Renal Disease? No UTI? No Stones? No BPH? No GB Disease: Yes Nephritic Syndrome? No Asplenia? No Hepatitis? No Sickle Cell Disease? No Arthritis? No Migraines? No Cataracts? Yes Glaucoma? No MRSA? No HIV? No TB? No Anxiety? Yes Depression? Yes Cancer? No More? No Immunization Hx DT/Tetanus 1-4 YRS Surgical Hx Previous Surgery?Y GALLBLADDER APPY T&A HYSTERECTOMY EYES X2 HEART STENTS X 3 MASTECTOMY OF RIGHT BREAS Social History Smoking Hx Smoker: Current Every Day Smoker Tobacco: Yes Type Cigarettes Packs/day 1 1/2 - 2 Packs Alcohol Alcohol: No Review of Systems All Other Systems Reviewed and Negative Constitutional denies fever Cardiovascular denies chest pain, denies syncope Gastrointestinal denies abdominal pain, denies vomiting Musculoskeletal joint pain, neck pain Physical Exam Vital Signs Vital Signs Date Time Temp Pulse Resp B/P Pulse O2 O2 Flow FiO2 Ox Delivery Rate 07/01 1911 97.6 99 20 134/74 98 07/01 1839 20 07/01 1657 97.6 99 20 134/74 98 General Appearance no apparent distress, cervical collar Eye Exam - bilateral eye normal exam, bilateral eye PERRL, bilateral eye EOMI Ear, Nose, Throat hearing grossly normal, normal ENT inspection Neck normal inspection, non-tender, supple, full range of motion Respiratory Status Yes: trachea midline, chest symmetrical, non tender chest. No: respiratory distress. Lung Sounds bilateral: normal breath sounds, lungs clear. Cardiovascular normal exam, regular rate/rhythm, no peripheral edema, no gallop, no JVD, no murmur, no rub, normal peripheral pulses Peripheral Pulses Pulses normal Yes Gastrointestinal normal bowel sounds, normal exam, non tender, soft, no organomegaly Neurologic alert, side stapler II-XII nml as tested, normal exam, no motor/sensory deficits, oriented x 3 Mental status normal mood/affect Skin intact, normal color, warm/dry Comments Tender LEFT ribs, LEFT hand, LEFT wrist, bilateral knees, LEFT elbow. No gross deformity, ecchymosis, or edema. Medical Decision Making LABS/Meds/Orders Pt receiving controlled substance in ED? Yes Peterson was queried for this patient? No Reason not queried - resident of [facility] Results/Orders Current Medication Orders Sig/Vikas Start time Last Medication Dose Route Stop Time Status Admin Diphenhydramine HCl 0 .STK-MED ONE 07/01 1838 DC PO Oxycodone/ 0 .STK-MED ONE 07/01 1838 DCr Acetaminophen PO Diphenhydramine HCl 50 MG ONCE ONE 07/01 1800 DC 07/01 PO 07/01 1801 183 Oxycodone/ 1 EACH ONCE ONE 07/01 1800 DCr 07/01 Acetaminophen PO 07/01 180 183 Orders Procedure Date/time Status DIET-NOTHING BY MOUTH 07/02 B Active WRIST-3 VIEWS-LT 07/01 1754 Active HAND-LT-3 VIEWS 07/[address] HEAD W/O CONTRAST 07/[address] CERVICAL SPINE W/O CONT. 07/[address] HEAD REQ 07/[address] SCAN REQUEST 07/01 1704 Active DXHV-CYCBAJKOEX-VW-3 VIEWS 07/01 1659 Active PELVIS AP ONLY 07/01 1659 Active KNEE-3 VIEWS-RT 07/01 1659 Active KNEE-3 VIEWS-LT 07/01 1659 Active ELBOW-LT-3 VIEWS 07/01 1659 Active XRAY/CT/US XRAY/CT/US XRAY elbow, knee, pelvis, rib Comment Rib x-ray series interpreted by Pete Renusch, M.D. Negative for radiographic rib fracture, pneumothorax, hemothorax, or wide mediastinum. RIGHT knee X-ray interpreted by Pete Lizarraga MD. Negative for fracture, dislocation, or foreign body. Degenerative changes present. LEFT knee X-ray interpreted by Pete Lizarraga MD. Negative for fracture, dislocation, or foreign body. Degenerative changes present. Pelvis X-ray interpreted by Pete Lizarraga MD. Negative for fracture, dislocation, or foreign body. Elbow X-ray interpreted by Pete Lizarraga MD. Negative for fracture, dislocation, or foreign body. CT head, C-spine Comment CT scan interpreted by [facility] radiologist. Faxed report received and reviewed: Head: No acute findings Cervical spine: No acute fracture, dislocation, or subluxation. Departure Departure Disposition DC Home or Self Care(routine) Clinical Impression Primary Impression: Fall down stairs Qualifiers: Encounter type: initial encounter Qualified Code: W10.8XXA - Fall ( on) (from) other stairs and steps, initial encounter Secondary Impressions: Contusion of left hand Qualifiers: Encounter type: initial encounter Qualified Code: S60.222A - Contusion of left hand, initial encounter Contusion of left knee Qualifiers: Encounter type: initial encounter Qualified Code: S80.02XA - Contusion of left knee, initial encounter Contusion of left wrist Qualifiers: Encounter type: initial encounter Qualified Code: S60.212A - Contusion of left wrist, initial encounter Contusion of rib on left side Qualifiers: Encounter type: initial encounter Qualified Code: S20.212A - Contusion of left front wall of thorax, initial encounter Contusion of right knee Qualifiers: Encounter type: initial encounter Qualified Code: S80.01XA - Contusion of right knee, initial encounter Left elbow contusion Qualifiers: Encounter type: initial encounter Qualified Code: S50.02XA - Contusion of left elbow, initial encounter Condition STABLE Referrals Tash WHYTE,Teto Sheridan (Family) Patient Instructions DI for Contusion, How to Prevent Falls Additional Instructions Continue your current medications and follow-up with your primary care doctor as needed ED Critical Care Critical Care No at 2021
[2017-07-01 19:11] VITALS: BP 134/74
--- NOTE | 2017-07-02 07:23 | RADIOLOGY REPORT PS360 ---
CQQB-IGHGLIUNXR-XH-3 VIEWS HISTORY: Posttraumatic pain FALL, PAIN ORDERING PHYSICIAN: Pete Lizarraga MD PATIENT AGE: 61 years COMPARISON: None FINDINGS: A frontal view of the chest shows no acute finding. Multiple views of the Left ribs were obtained. No fracture or dislocation. No lytic or blastic change. IMPRESSION: Negative RIBS. If pain persists, consider follow-up exam in 7-[address] with 3-D reformats.
--- NOTE | 2017-07-02 07:26 | RADIOLOGY REPORT PS360 ---
ELBOW-LT-3 VIEWS HISTORY: Pain following injury FALL, PAIN ORDERING PHYSICIAN: Pete Lizarraga MD PATIENT AGE: 61 years COMPARISON: None FINDINGS: 3 views are obtained. Lateral view is obliqued. Cannot adequately evaluate for a fat pad. No displaced fracture or dislocation evident. There is a longitudinal lucency over the medial aspect of the radial head and may be due to a mock line from the overlying humerus. If pain persists, repeat exam without rotation or CT may be of further value. IMPRESSION: Somewhat limited exam, no definite acute fracture.
--- NOTE | 2017-07-02 07:27 | RADIOLOGY REPORT PS360 ---
PELVIS AP ONLY HISTORY: Pain following injury FALL, PAIN ORDERING PHYSICIAN: Pete Lizarraga MD PATIENT AGE: 61 years COMPARISON: None FINDINGS: No fracture or dislocation is evident. No significant degenerative change. No lytic or blastic change. The SI joints have an unremarkable appearance. Unremarkable soft tissues. IMPRESSION: Negative pelvis.
--- NOTE | 2017-07-02 07:30 | RADIOLOGY REPORT PS360 ---
KNEE-3 VIEWS-LT HISTORY: Pain following injury FALL, PAIN ORDERING PHYSICIAN: Pete Lizarraga MD PATIENT AGE: 61 years COMPARISON: 08/01/2009 FINDINGS: There are severe osteoarthritic changes of the medial compartment and patellofemoral joint. No fracture or dislocation evident. IMPRESSION: Severe osteoarthritis. No acute fracture
--- NOTE | 2017-07-02 07:31 | RADIOLOGY REPORT PS360 ---
KNEE-3 VIEWS-RT HISTORY: Post traumatic pain FALL, PAIN ORDERING PHYSICIAN: Pete Lizarraga MD PATIENT AGE: 61 years COMPARISON: 08/01/2009 FINDINGS: There are severe osteoarthritic changes of the medial compartment and patellofemoral joint. Mild osteoarthritic change involving lateral compartment. No acute fracture or dislocation. There is increased density in the suprapatellar region consistent knee joint effusion. IMPRESSION: Severe osteoarthritis with knee joint effusion, no obvious fracture
--- NOTE | 2017-07-02 07:34 | RADIOLOGY REPORT PS360 ---
HAND-LT-3 VIEWS HISTORY: Pain following injury fell ORDERING PHYSICIAN: Pete Lizarraga MD PATIENT AGE: 61 years COMPARISON: None FINDINGS: Small calcific density is present along the lateral aspect of the interphalangeal joint of the thumb and also at the DIP of the index ray or. This could be related to avulsion fractures or periarticular calcification.. Mild osteoarthritic change DIP of the fifth finger. Otherwise negative. IMPRESSION: 1. Avulsion injuries age-indeterminate versus degenerative periarticular calcification at the interphalangeal joint of the thumb and the DIP of the index finger requiring clinical correlation 2. Otherwise negative
--- NOTE | 2017-07-02 07:36 | RADIOLOGY REPORT PS360 ---
WRIST-3 VIEWS-LT HISTORY: Posttraumatic pain fell ORDERING PHYSICIAN: Pete Lizarraga MD PATIENT AGE: 61 years COMPARISON: None FINDINGS: Mild osteoarthritic changes are present at the first metacarpal carpal joint. A small linear calcific density is present between the base of the first and second metacarpal on the lateral view and could be due to an avulsion injury age indeterminate or degenerative periarticular calcification. Please correlate clinically. Otherwise negative. IMPRESSION: 1. Avulsion fracture age indeterminate at the base of the first and second metacarpal versus degenerative periarticular calcification. Clinical correlation required. 2. Otherwise negative
--- NOTE | 2017-07-02 08:39 | RADIOLOGY REPORT PS360 ---
CT HEAD W/O CONTRAST HISTORY: Headache, injury, pain, contusion or hematoma FALL ORDERING PHYSICIAN: Pete Lizarraga MD PATIENT AGE: 61 years COMPARISON: 12/05/2016 TECHNIQUE: Axial images obtained without contrast. Brain and bone windows reviewed. FINDINGS: No midline shift, mass effect, intracranial hemorrhage, hydrocephalus, or extra-axial fluid collection is evident. Mild periventricular ischemic gliotic change The calvarium has an unremarkable appearance. No mastoid effusion. Mild sinus disease. IMPRESSION: No acute intracranial findings.
--- NOTE | 2017-07-02 08:43 | RADIOLOGY REPORT PS360 ---
CT CERVICAL SPINE W/O CONT INDICATION: Neck pain following injury FALL ORDERING PHYSICIAN: Pete Lizarraga MD PATIENT AGE: 61 years COMPARISON: 07/01/2017 TECHNIQUE: Axial images are obtained without contrast. Sagittal and coronal reformatted images are reviewed as well. FINDINGS: No acute fracture or dislocation. Normal alignment. Multilevel degenerative disc disease and facet arthritic changes. C2-C3: Right-sided foraminal narrowing from facet and uncovertebral hypertrophy. C3-C4: Minimal anterolisthesis of C3 of 2 mm with bilateral foraminal narrowing from uncovertebral and facet hypertrophy. C4-C5: Bilateral foraminal narrowing from uncovertebral and facet hypertrophy. Cystic change involves the facets on the right at C5 C5-C6 and C6-C7 and C7-T1 are unremarkable. Lung apices are clear. IMPRESSION: 1. No acute fracture. 2. Moderate cervical spondylosis as above with degenerative disc and facet arthropathy
--- OUTSIDE RECORDS SUMMARY | 2017-07-02 21:19 | External Medical Summary Rpt | CCD ---
Author Author , YOLANDE DYER Address Unknown Phone [email or web address] Purpose Continuity of Care Document - 05-07-2017 [...]
--- OUTSIDE RECORDS SUMMARY | 2017-07-02 21:19 | External Medical Summary Rpt | CCD ---
Author Author , MANISHA Organization MANISHA Address Unknown Phone [email or web address] Immunization Name Date Rout CVX Reac Dose Comm Prov Is Faci e tion ent ider Refu lity Give sed n PCV1 10-2 133 999 Hist LEXC No LEXC 3 2-20 [facility] HE HE 15 al Info rmat ion - Sour ce Unsp ecif ied Infl 10-2 141 999 Hist LEXC No LEXC uenz 2-20 [facility] HE HE a, 15 al Seas Info onal rmat ion - Sour ce Unsp ecif ied
--- OUTSIDE RECORDS SUMMARY | 2017-07-02 21:19 | External Medical Summary Rpt | CCD ---
Author Author , YOLANDE DYER Address Unknown Phone [employer] Purpose Continuity of Care Document - 05-07-2017 [...]
--- OUTSIDE RECORDS SUMMARY | 2017-07-02 21:19 | External Medical Summary Rpt | CCD ---
Author Author , MANISHA Organization MANISHA Address Unknown Phone [email or web address] Immunization Name Date Rout CVX Reac Dose Comm Prov Is Faci e tion ent ider Refu lity Give sed n PCV1 10-2 133 999 Hist LEXC No LEXC 3 2-20 [facility] HE HE 15 al Info rmat ion - Sour ce Unsp ecif ied Infl 10-2 141 999 Hist LEXC No LEXC uenz 2-20 [facility] HE HE a, 15 al Seas Info onal rmat ion - Sour ce Unsp ecif ied
== END 2017-07-01 19:11 | disposition home or self-care (01) ==
LOC: ER 16:57
DX: S60.222A Contusion of left hand, initial encounter (principal); S80.02XA Contusion of left knee, initial encounter; S60.212A Contusion of left wrist, initial encounter; S20.212A Contusion of left front wall of thorax, initial encounter; S80.01XA Contusion of right knee, initial encounter; S50.02XA Contusion of left elbow, initial encounter; W10.8XXA Fall (on) (from) other stairs and steps, initial encounter; Z88.6 Allergy status to analgesic agent; Z88.1 Allergy status to other antibiotic agents; J45.909 Unspecified asthma, uncomplicated; K21.9 Gastro-esophageal reflux disease without esophagitis; F17.210 Nicotine dependence, cigarettes, uncomplicated

== ENCOUNTER 2017-07-11 17:36 | Emergency (ER) | payer MEDICARE, MEDICAID ==
[~2017-07-11] VITALS: Ht 160 cm; Wt 81.6 kg
--- NOTE | 2017-07-11 17:47 | Emergency Room Report ---
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 Clinical Suspician of Infection? Mental Status: Sepsis Risk: Have you (or family members/close friends) recently traveled outside the [place]? If Yes, where/when: Have you had exposure to infectious disease within the past month? TB? Other? Specify: Lateral right ankle pain with movement since getting out of bed this morning and putting foot on floor and feeling a clicking sensation. No pain w/ WB. She adamantly states she never twisted her ankle per se. She has baseline PVD and states her feet are always cold. She reports hx extense DJD. Personal fdc reports hx of dementia. ALLERGIES Coded Allergies: trazodone (Intermediate, I-RASH 01/26/17) Beta-Blockers (Beta-Adrenergic Bloc (01/26/17) Macrolides (01/26/17) Proton Pump Inhibitors (01/26/17) Serotonin 5HT-3 Antagonists (01/26/17) bupropion (From WELLBUTRIN) (01/26/17) cimetidine (01/26/17) codeine (01/26/17) doxycycline (06/23/17) erythromycin base (From ERYTHROCIN) (01/26/17) fluoxetine (From PROZAC) (01/26/17) iodine (01/26/17) phenobarbital (01/26/17) pimecrolimus (From ELIDEL) (01/26/17) sirolimus (01/26/17) tacrolimus (01/26/17) topiramate (From TOPAMAX) (01/26/17) tramadol (01/26/17) venlafaxine (From EFFEXOR) (01/26/17) Uncoded Allergies: CONTRAST DYE (07/06/16) KETOLIDES (07/06/16) Home Medications Reported Medications CLOPIDOGREL BISULFATE (Clopidogrel) 75 MG PO DAILY #30 Glipizide 10 MG PO DAILY #30 Letrozole 2.5 MG PO DAILY #30 NITROGLYCERIN (Nitrostat) 0.4 MG SL [id number] PRN CHEST PAIN #25 RANITIDINE HCL (Ranitidine HCl) 300 MG PO BID #60 TAB Lisinopril 20 MG PO DAILY PRN SBP > 130 #15 TAB PROMETHAZINE HCL (Phenergan 12.5MG Tab (Geq)) 12.5 MG PO Q8HP PRN NAUSEA #30 TAB Furosemide (Furosemide) 20 MG FT DAILY PRN FLUID #30 TAB Cyclobenzaprine Hcl 10 MG OR Q8HP PRN PAIN #30 TAB Atorvastatin Calcium 20 MG PO QHS #30 TAB AMITRIPTYLINE HCL (Amitriptyline HCl) 75 MG PO QHS #30 TAB Alprazolam 0.5 MG PO TID PRN ANXIETY #30 TAB Pregabalin (Lyrica 100Mg) 100 MG PO BID #30 CAPSULE Acetaminophen (Tylenol) 325 MG PO Q4HP PRN PAIN/FEVER ASPIRIN (Aspirin) 81 MG PO DAILY Calcium/Magnesium/Zinc (Wednbfv-Kcgbucqbh-Wtzd Tablet) 2 EACH PO DAILY FEXOFENADINE HCL (Cindy Allergy) 180 MG OR DAILY Bacillus Coagulans (Probiotic) 1 EACH PO DAILY Ascorbic Acid (Vitamin C) 1,000 MG PO DAILY Vitamin E (Vitamin E 400 UNITS) 400 IUNITS PO DAILY Phytonadione (Vitamin K) 0.1 MG PO DAILY Ezetimibe (Zetia) 10 MG PO DAILY OXYCODONE HCL/ACETAMINOPHEN (Percocet 5-325 MG Tablet) 1 TAB PO Q6HP PRN PAIN Diphenhydramine Hcl (Benadryl 50MG Cap) 50 MG PO Q4-6H PRN Pravastatin Sodium (Pravastatin 20MG) 20 MG PO DAILY Docusate Sodium 250 MG PO DAILY History Medical History General CAD? Yes Angina: Yes [place]: Yes Hypertension? Yes Hyperlipidemia? Yes CHF? No DVT? No PE? No COPD? No Asthma? Yes Anemia? No GERD? Yes Gastric ulcers? Yes GI Bleed? No Hernia? Yes Thyroid Problems? No Hypothyroidism? No CVA? Yes Seizures? No Diabetes? Yes Insulin Dependent: No Insulin Pump: No Home FSBS? Yes Renal Insuffiency? No End Stage Renal Disease? No UTI? No Stones? No BPH? No GB Disease: Yes Nephritic Syndrome? No Asplenia? No Hepatitis? No Sickle Cell Disease? No Arthritis? No Migraines? No Cataracts? Yes Glaucoma? No MRSA? No HIV? No TB? No Anxiety? Yes Depression? Yes Cancer? No More? No Immunization Hx DT/Tetanus 1-4 YRS Surgical Hx Previous Surgery?Y GALLBLADDER APPY T&A HYSTERECTOMY EYES X2 HEART STENTS X 3 MASTECTOMY OF RIGHT BREAS Social History Smoking Hx Packs/day 1 1/2 - 2 Packs Alcohol Alcohol: No Review of Systems All Other Systems Reviewed and Negative Cardiovascular see HPI Musculoskeletal see HPI Psychiatric/Neurological pre-existing deficit Physical Exam Vital Signs Vital Signs Date Time Temp Pulse Resp B/P Pulse O2 O2 Flow FiO2 Ox Delivery Rate 07/11 1737 98.3 105 18 154/81 96 General Appearance normal appearance, WD/WN, no apparent distress Respiratory Status Yes: trachea midline. No: respiratory distress. Cardiovascular no peripheral edema, normal peripheral pulses Extremities both feet are slightly cool, w/o any discoloration, and pt states this is normal for her; brisk pulses, brisk CR; sensate throughout with FROM. Subjectively tender proximal to the lateral right malleolus with no crepitus, deformities, or stepoffs noted No edema. Sheis weight bearing. Strength 5 Upper Ext (L), 5 Upper Ext (R), 5 Lower Ext (L), 5 Lower Ext (R) (uses a cane) Neurologic alert, normal exam, no motor/sensory deficits, oriented x 3 (hx dementia; pleasant/alert) Glascow Coma Scale Glascow Coma Scale Response Value EYE response: 4 Spontaneously 4 MOTOR response: 6 OBEYS 6 VERBAL response: 5 Oriented & Converses 5 Total 15 Skin intact, normal color, abrasions Medical Decision Making LABS/Meds/Orders Pt receiving controlled substance in ED? No (declines pain meds) Results/Orders Orders Procedure Date/time Status STABILIZE JOINT 07/11 1808 Active ANKLE-RT-3 VIEWS 07/11 1738 Active XRAY/CT/US XRAY/CT/US XRAY ankle XR interpretation by reviewed by me Xray Results abnormal, fracture noted distal fibula shaft, no displacement; this is new since 11/05. Clinical recheck correlates with xray. Progress ED Progress Notes Date 07/11/17 Time 1811 Comment Pt refuses pain medication Departure Departure Time of Disposition 1808 Disposition DC Home or Self Care(routine) Clinical Impression Primary Impression: Fracture closed, fibula, shaft Qualifiers: Encounter type: initial encounter Fracture morphology: oblique Fracture alignment: nondisplaced Laterality: right Qualified Code: S82.434A - Nondisplaced oblique fracture of shaft of right fibula, initial encounter for closed fracture Condition STABLE Referrals Tash WHYTE,Teto Sheridan (Family) Alvin WHYTE,Jorge Patient Instructions DI for Fracture Additional Instructions Use your walker and/or wheelchair for support; no weight bearing on right ankle/ foot until cleared by orthopedic surgeon; recommend follow up with Dr. Esquivel in 3-5 days. Tylenol as needed Discharge Counseling Counseled pt/family regarding diagnosis, test results, medications/RX, home care, follow up needs ED Critical Care Critical Care No
--- NOTE | 2017-07-11 17:47 | Emergency Room Report ---
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 Clinical Suspician of Infection? Mental Status: Sepsis Risk: Have you (or family members/close friends) recently traveled outside the [place]? If Yes, where/when: Have you had exposure to infectious disease within the past month? TB? Other? Specify: Lateral right ankle pain with movement since getting out of bed this morning and putting foot on floor and feeling a clicking sensation. No pain w/ WB. She adamantly states she never twisted her ankle per se. She has baseline PVD and states her feet are always cold. She reports hx extense DJD. Personal mcfp reports hx of dementia. ALLERGIES Coded Allergies: trazodone (Intermediate, I-RASH 01/26/17) Beta-Blockers (Beta-Adrenergic Bloc (01/26/17) Macrolides (01/26/17) Proton Pump Inhibitors (01/26/17) Serotonin 5HT-3 Antagonists (01/26/17) bupropion (From WELLBUTRIN) (01/26/17) cimetidine (01/26/17) codeine (01/26/17) doxycycline (06/23/17) erythromycin base (From ERYTHROCIN) (01/26/17) fluoxetine (From PROZAC) (01/26/17) iodine (01/26/17) phenobarbital (01/26/17) pimecrolimus (From ELIDEL) (01/26/17) sirolimus (01/26/17) tacrolimus (01/26/17) topiramate (From TOPAMAX) (01/26/17) tramadol (01/26/17) venlafaxine (From EFFEXOR) (01/26/17) Uncoded Allergies: CONTRAST DYE (07/06/16) KETOLIDES (07/06/16) Home Medications Reported Medications CLOPIDOGREL BISULFATE (Clopidogrel) 75 MG PO DAILY #30 Glipizide 10 MG PO DAILY #30 Letrozole 2.5 MG PO DAILY #30 NITROGLYCERIN (Nitrostat) 0.4 MG SL [id number] PRN CHEST PAIN #25 RANITIDINE HCL (Ranitidine HCl) 300 MG PO BID #60 TAB Lisinopril 20 MG PO DAILY PRN SBP > 130 #15 TAB PROMETHAZINE HCL (Phenergan 12.5MG Tab (Geq)) 12.5 MG PO Q8HP PRN NAUSEA #30 TAB Furosemide (Furosemide) 20 MG FT DAILY PRN FLUID #30 TAB Cyclobenzaprine Hcl 10 MG OR Q8HP PRN PAIN #30 TAB Atorvastatin Calcium 20 MG PO QHS #30 TAB AMITRIPTYLINE HCL (Amitriptyline HCl) 75 MG PO QHS #30 TAB Alprazolam 0.5 MG PO TID PRN ANXIETY #30 TAB Pregabalin (Lyrica 100Mg) 100 MG PO BID #30 CAPSULE Acetaminophen (Tylenol) 325 MG PO Q4HP PRN PAIN/FEVER ASPIRIN (Aspirin) 81 MG PO DAILY Calcium/Magnesium/Zinc (Yedhihn-Skxdcxdne-Djre Tablet) 2 EACH PO DAILY FEXOFENADINE HCL (Cindy Allergy) 180 MG OR DAILY Bacillus Coagulans (Probiotic) 1 EACH PO DAILY Ascorbic Acid (Vitamin C) 1,000 MG PO DAILY Vitamin E (Vitamin E 400 UNITS) 400 IUNITS PO DAILY Phytonadione (Vitamin K) 0.1 MG PO DAILY Ezetimibe (Zetia) 10 MG PO DAILY OXYCODONE HCL/ACETAMINOPHEN (Percocet 5-325 MG Tablet) 1 TAB PO Q6HP PRN PAIN Diphenhydramine Hcl (Benadryl 50MG Cap) 50 MG PO Q4-6H PRN Pravastatin Sodium (Pravastatin 20MG) 20 MG PO DAILY Docusate Sodium 250 MG PO DAILY History Medical History General CAD? Yes Angina: Yes [place]: Yes Hypertension? Yes Hyperlipidemia? Yes CHF? No DVT? No PE? No COPD? No Asthma? Yes Anemia? No GERD? Yes Gastric ulcers? Yes GI Bleed? No Hernia? Yes Thyroid Problems? No Hypothyroidism? No CVA? Yes Seizures? No Diabetes? Yes Insulin Dependent: No Insulin Pump: No Home FSBS? Yes Renal Insuffiency? No End Stage Renal Disease? No UTI? No Stones? No BPH? No GB Disease: Yes Nephritic Syndrome? No Asplenia? No Hepatitis? No Sickle Cell Disease? No Arthritis? No Migraines? No Cataracts? Yes Glaucoma? No MRSA? No HIV? No TB? No Anxiety? Yes Depression? Yes Cancer? No More? No Immunization Hx DT/Tetanus 1-4 YRS Surgical Hx Previous Surgery?Y GALLBLADDER APPY T&A HYSTERECTOMY EYES X2 HEART STENTS X 3 MASTECTOMY OF RIGHT BREAS Social History Smoking Hx Packs/day 1 1/2 - 2 Packs Alcohol Alcohol: No Review of Systems All Other Systems Reviewed and Negative Cardiovascular see HPI Musculoskeletal see HPI Psychiatric/Neurological pre-existing deficit Physical Exam Vital Signs Vital Signs Date Time Temp Pulse Resp B/P Pulse O2 O2 Flow FiO2 Ox Delivery Rate 07/11 1737 98.3 105 18 154/81 96 General Appearance normal appearance, WD/WN, no apparent distress Respiratory Status Yes: trachea midline. No: respiratory distress. Cardiovascular no peripheral edema, normal peripheral pulses Extremities both feet are slightly cool, w/o any discoloration, and pt states this is normal for her; brisk pulses, brisk CR; sensate throughout with FROM. Subjectively tender proximal to the lateral right malleolus with no crepitus, deformities, or stepoffs noted No edema. Sheis weight bearing. Strength 5 Upper Ext (L), 5 Upper Ext (R), 5 Lower Ext (L), 5 Lower Ext (R) (uses a cane) Neurologic alert, normal exam, no motor/sensory deficits, oriented x 3 (hx dementia; pleasant/alert) Glascow Coma Scale Glascow Coma Scale Response Value EYE response: 4 Spontaneously 4 MOTOR response: 6 OBEYS 6 VERBAL response: 5 Oriented & Converses 5 Total 15 Skin intact, normal color, abrasions Medical Decision Making LABS/Meds/Orders Pt receiving controlled substance in ED? No (declines pain meds) Results/Orders Orders Procedure Date/time Status STABILIZE JOINT 07/11 1808 Active ANKLE-RT-3 VIEWS 07/11 1738 Active XRAY/CT/US XRAY/CT/US XRAY ankle XR interpretation by reviewed by me Xray Results abnormal, fracture noted distal fibula shaft, no displacement; this is new since 11/05. Clinical recheck correlates with xray. Progress ED Progress Notes Date 07/11/17 Time 1811 Comment Pt refuses pain medication Departure Departure Time of Disposition 1808 Disposition DC Home or Self Care(routine) Clinical Impression Primary Impression: Fracture closed, fibula, shaft Qualifiers: Encounter type: initial encounter Fracture morphology: oblique Fracture alignment: nondisplaced Laterality: right Qualified Code: S82.434A - Nondisplaced oblique fracture of shaft of right fibula, initial encounter for closed fracture Condition STABLE Referrals Tash WHYTE,Teto Sheridan (Family) Alvin WHYTE,Jorge Patient Instructions DI for Fracture Additional Instructions Use your walker and/or wheelchair for support; no weight bearing on right ankle/ foot until cleared by orthopedic surgeon; recommend follow up with Dr. Esquivel in 3-5 days. Tylenol as needed Discharge Counseling Counseled pt/family regarding diagnosis, test results, medications/RX, home care, follow up needs ED Critical Care Critical Care No
--- OUTSIDE RECORDS SUMMARY | 2017-07-11 17:56 | External Medical Summary Rpt | CCD ---
Author Author , YOLANDE DYER Address Unknown Phone [email or web address] Purpose Continuity of Care Document - 05-07-2017 [...]
--- OUTSIDE RECORDS SUMMARY | 2017-07-11 17:56 | External Medical Summary Rpt | CCD ---
Author Author , MANISHA Organization MANISHA Address Unknown Phone [email or web address] Immunization Name Date Rout CVX Reac Dose Comm Prov Is Faci e tion ent ider Refu lity Give sed n Infl 10-1 140 0.5 Hist [facility] No RITE uenz 8-20 mL oric STACY AID0 a, 17 al AYMA 3913 P-Fr Info N ee rmat ion - Sour ce Unsp ecif ied PCV1 10-2 133 999 Hist LEXC No LEXC 3 2-20 oric HE HE 15 al Info rmat ion - Sour ce Unsp ecif ied Infl 10-2 Intr 141 999 Hist LEXC No LEXC uenz 2-20 amus oric HE HE a, 15 cula al Seas r Info onal rmat ion - Sour ce Unsp ecif ied
--- OUTSIDE RECORDS SUMMARY | 2017-07-11 17:56 | External Medical Summary Rpt | CCD ---
Author Author , YOLANDE DYER Address Unknown Phone [email or web address] Purpose Continuity of Care Document - 05-07-2017 [...]
--- OUTSIDE RECORDS SUMMARY | 2017-07-11 17:56 | External Medical Summary Rpt | CCD ---
Author Author , MANISHA Organization MANISHA Address Unknown Phone [email or web address] Immunization Name Date Rout CVX Reac Dose [...]
--- OUTSIDE RECORDS SUMMARY | 2017-07-11 17:57 | External Medical Summary Rpt ---
[...] Bilirubin 0.2 - 1.0 mg/dL Normal No Jun 5 .total informati 2017 [Mass/vol on in [...]
--- NOTE | 2017-07-11 18:19 | RADIOLOGY REPORT PS360 ---
ANKLE-RT-3 VIEWS HISTORY: stepped on floor this AM and felt clicking sensation latlateral . Injury one day ago. Pain lateral ankle Patient Age: 61 years: Female Ordering Physician: Sonali Campbell MD TECHNIQUE: 3 views right ankle COMPARISON :October 23, 2016 right ankle series FINDINGS There is a healing fracture of the distal fibular shaft this was not evident on October 2016 exam and appears to occurred in the interval. This fracture is certainly not acute. There appears be some periosteal reaction posteriorly. There is sclerosis and buttressing & flaring at the lateral cortex about this fracture zone. Mild cortical thickening beginning at the medial cortex. Clinical correlation required in regards to this older injury. In regards to current injury as see no discrete acute additional fractures. Tip the lateral malleolus appears intact. Minor soft tissue swelling throughout this region. The medial malleolus and posterior malleolus intact. The dome of talus is intact. Other likely some mild arthritic changes at the midfoot. Prominent plantar calcaneal spur incidentally noted 12 mm length IMPRESSION: . 3. Old healing oblique fracture of the distal fibula. Requires correlation No additional acute fracture evident. At right Ankle & specifically at lateral malleolus..
[2017-07-11 19:06] VITALS: BP 154/81
== END 2017-07-11 20:06 | disposition home or self-care (01) ==
LOC: ER 17:36
PROC: 2W3QX1Z Immobilization of Right Lower Leg using Splint (ICD-10-PCS; principal; 2017-07-11)
DX: S82.434A Nondisplaced oblique fracture of shaft of right fibula, initial encounter for closed fracture (principal); I73.9 Peripheral vascular disease, unspecified; F03.90 Unspecified dementia, unspecified severity, without behavioral disturbance, psychotic disturbance, mood disturbance, and anxiety; Z88.8 Allergy status to other drugs, medicaments and biological substances; Z79.82 Long term (current) use of aspirin; I25.10 Atherosclerotic heart disease of native coronary artery without angina pectoris; I10 Essential (primary) hypertension; E11.9 Type 2 diabetes mellitus without complications; Z79.84 Long term (current) use of oral hypoglycemic drugs; F17.210 Nicotine dependence, cigarettes, uncomplicated